=== PATIENT | female | born 1980 | race Caucasian/White ===

== ENCOUNTER → 2018-07-02 12:41 | Outpatient (CLI) | payer OTHER, SELFPAY ==
--- NOTE | 2018-07-02 | LES_PTH ---
PATIENT: IVÁN [facility]ILLS [id number] AGE/SX: 45/F ROOM: RE07/02/[address]: Dr. Juan Pablo Howard MD : 1980 BED: DIS: SPEC #: [id number] RECD: 07/02/18 13:55 STATUS: MAUREEN JUSTINO #: [id number] PATRICE: 07/02/18 00:[address]: Juan Pablo Howard DEPT: SURGICAL PATHOLOGY RECD BY: Julien Moreno ENTERED: 07/02/18 14:02 SP TYPE: Lesion OTHR DR: Dr. Gerard Campbell, DO Tissues: Mouth, NOS Procedures: Surgery Specimen Level IV HEADER OPERATION: Biopsy PRE-OP DIAGNOSIS: Lichen planus L43.9; disturbances of salivary secretion K11.7 TISSUE SUBMITTED: Left cheek, biopsy lesion vestibule of mouth MICROSCOPIC DIAGNOSIS Lesion of left cheek, biopsy: Consistent with benign papilloma. AM:lenny 07/03/18 COMMENT Case has been reviewed in consultation with Dr. Pena who concurs with the above diagnosis. IDC:ARASH MICROSCOPIC DESCRIPTION Slides are reviewed. GROSS DESCRIPTION Received is one container labeled with the patient's name and not further designated. The specimen consists of a piece of barr mucosal tissue measuring 0.3 x 0.3 x 0.2 cm. The specimen is totally submitted in one cassette. / ARASH:lenny 07/02/18 TC:5 CPT: 34689
== END ==
PROVIDERS: Family Provider Student in an Organized Health Care Education/Training Program; PCP Student in an Organized Health Care Education/Training Program; Referring Provider Otolaryngology; Visit Provider Otolaryngology
DX: L43.9 Lichen planus, unspecified (principal); K11.7 Disturbances of salivary secretion
CPT/HCPCS: 88305

== ENCOUNTER 2021-10-04 08:20 | Day surgery (SDC) | payer OTHER, SELFPAY ==
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
[2021-10-04] VITALS (7 sets, daily range): BP systolic 120–128; BP diastolic 78–88; PULSE 80–98; RESP 16–18; TEMP 36.2–36.7; O2SAT 97–100; BMI 26.4
--- NOTE | 2021-10-04 | IMM_PTH ---
PATIENT: IVÁN BILLS [place] [facility] [place][id number] AGE/SX: 41/F ROOM: RE10/04/[address]: Dr. Martha Edmonds MD : 1980 BED: DIS: 10/04/2021 SPEC #: [id number] RECD: 10/07/21 12:13 STATUS: MAUREEN REQ #: [id number] PATRICE: 10/04/21 00:[address]: Martha Edmonds DEPT: IMMUNOHISTOCHEMISTRY RECD BY: Denae Messer ENTERED: 10/07/21 12:15 SP TYPE: IMMUNO OTHR DR: Dr. Gerard Campbell DO Tissues: A - Axillary lymph node, NOS B - Right breast, NOS Procedures: CK8 (initial) CALPONIN-1 (add) CK7 (add) E-CAD (add) Pankeratin (initial) Pankeratin (add) P40 (add) PHYSICIAN & INSTITUTION [place] [id number] SPECIMEN INFORMATION: Tissue Source: A ? Right breast sentinel lymph nodes, B ? Right breast lumpectomy Clinical Info: Right breast cancer Specimen Number: [id number] A1-A4, B12 CPT code: 30576 x2, 70056 x10 METHODOLOGY: Deparaffinized sections of prefer/formalin-fixed tissue or PAP/DQ stained slides are incubated with monoclonal/polyclonal antibodies/oligonucleotide probes. Localization is made via biotin free immunoperoxidase method. Appropriate controls are performed and reacted as expected. Results on target cell population are indicated in the following table: RESULTS: ANTIBODY / CLONE RESULT Block A1 AE1-3 (AE1/AE3/PCK26) negative CK7 (OV-TL12/30) negative Block A2 AE1-3 (AE1/AE3/PCK26) negative CK7 (OV-TL12/30) negative Block A3 AE1-3 (AE1/AE3/PCK26) negative CK7 (OV-TL12/30) negative Block A4 AE1-3 (AE1/AE3/PCK26) negative CK7 (OV-TL12/30) negative Block B12 CK8 ([id number]) positive Calponin-1 (XK968M) negative E-Cad (ECH-6) positive P40 (BC28) negative These tests were developed and their performance characteristics determined by [facility]. They may not have been cleared or approved by the U.S. Food and Drug Administration. The FDA has determined that such clearance or approval is not necessary. The above immunohistochemical/dualISH markers are ordered and reviewed by the Pathologist. INTERPRETATION: A. Right breast sentinel lymph nodes, biopsy: Five out of five lymph nodes, negative for metastatic carcinoma. B. Right breast mass, lumpectomy with needle localization: Invasive ductal carcinoma (smaller focus). SJ:lenny 10/10/2021
--- NOTE | 2021-10-04 | AXNB_PTH ---
PATIENT: IVÁN BILLS LOC: [facility] [place] U#:[id number] AGE/SX: 41/F ROOM: RE10/04/[address]: Dr. Martha Edmonds MD : 1980 BED: DIS: 10/04/2021 SPEC #: [id number] RECD: 10/04/21 12:38 STATUS: MAUREEN REQ #: [id number] PATRICE: 10/04/21 00:[address]: Martha Edmonds DEPT: SURGICAL PATHOLOGY RECD BY: Denae Messer ENTERED: 10/04/21 13:22 SP TYPE: AX NODE BX OTHR DR: Dr. Gerard Campbell DO Tissues: Axillary lymph node, NOS Procedures: Frozen Section (charge) Frozen Section Add'l ([facility]) Surgery Specimen Level V HEADER OPERATION: Right breast lumpectomy, SN biopsy, frozen section PRE-OP DIAGNOSIS: Right breast cancer TISSUE SUBMITTED: A ? Right axilla lymph node tissue, B ? Right breast mass FROZEN SECTION DIAGNOSIS A. Right axillary sentinel lymph nodes, biopsy: Five out of five lymph nodes negative for carcinoma. AM:lenny 10/04/2021 Case has been reviewed in consultation with Dr. Pena who concurs with the above diagnosis. IDC:SJ MICROSCOPIC DIAGNOSIS A. Right axillary sentinel lymph nodes, biopsy: Five out of five lymph nodes, negative for metastatic carcinoma. See comment. B. Right breast mass, lumpectomy with needle localization: Invasive ductal carcinoma. See cancer summary in the comment section. SJ:lenny 10/07/2021 COMMENT A. The lymph nodes are negative for metastatic carcinoma on multiple H & E levels and immunohisto-chemical stains for cytokeratins ([id number]). B. BREAST CANCER SUMMARY Procedure ? excision, lumpectomy with needle localization Specimen laterality - right Invasive tumor: Tumor site ? upper outer quadrant per EMR Tumor size ? 1.2 x 1 x 1 cm Histologic type ? invasive ductal carcinoma, no special type Histologic grade (Michelle grade), larger focus: Glandular/tubular differentiation score - 3 Nuclear pleomorphism score - 2 Mitotic count score - 1 Overall grade - grade 2 (score of 6) Histologic grade (Michelle grade), smaller focus: Glandular/tubular differentiation score - 1 Nuclear pleomorphism score - 1 Mitotic count score - 1 Overall grade - grade 1 (score of 3) Tumor focality ? two foci of invasive carcinoma. Size of individual foci ? larger focus 1.2 x 1 x 1 cm, smaller focus 0.5 x 0.4 cm (measured microscopically) Ductal carcinoma in situ - present Negative for extensive intraductal component (EIC). Size (extent) of DCIS ? DCIS comprise <5% of total tumor volume. Number of blocks with DCIS - 2 Number of blocks examined - 16 Architectural pattern ? cribriform and solid Nuclear grade - grade 2 (intermediate) Necrosis ? not identified Lobular carcinoma in situ - not identified Tumor extension: Skin ? not present Nipple ? not applicable Skeletal muscle ? not present Margins: Invasive and DCIS margin are 0.5 cm away from the closest posterior margin. Regional lymph nodes: Total number of lymph nodes examined - 5 Number of sentinel lymph nodes examined - 5 Number of lymph nodes with macrometastases, micrometastases or isolated tumor cells - 0 Treatment effect - no known presurgical therapy. Lymphvascular invasion ? not identified Dermal lymphvascular invasion ? not applicable Additional Pathologic Findings ? focal fibrocystic changes Ancillary Studies: Previously performed on same tumor at [facility] ([id number]) ER: positive, 99%, strong staining VT: positive, 99%, strong staining [id number]: negative, 1+ Microcalcifications ? not identified Clinical History - Please make reference to previous specimen from [facility] ([id number]), right breast, biopsy with diagnosis of ?invasive ductal carcinoma, provisional Michelle grade 2, measures at least 8?mm in greatest length.? PATHOLOGIC STAGE: pT1c pN0(sn) pMx The above summary is in compliance with [employer] [place] [employer] (CAP) Cancer Protocols Checklist and [place] [employer] Joint Committee on Cancer (AJCC), Staging Manual, 8th Ed. B. Immunohistochemistry ([id number]) supports the diagnosis of smaller focus of adenocarcinoma. This case has been reviewed in consultation with Dr. Gore who concurs with the above diagnosis. MICROSCOPIC DESCRIPTION Slides are reviewed. GROSS DESCRIPTION A - Received fresh for frozen section consultation labeled with the patient's name is a specimen designated right axilla lymph nodes. The specimen consists of two irregular fragments of barr-yellow fibrofatty tissue. The smaller fragment measures 3 x 2.5 x 1.3 cm and the larger fragment measures 7 x 2 x 0.5 cm. Dissection of fragments reveal five nodules resembling lymph nodes. These nodules range in size from 0.7 to 2 cm. The nodules are submitted in their entirety in four cassettes as follows: 1 - two nodules, 2 - one nodule, 3 - one nodules, 4 - one nodule, bisected. / AM:lenny 10/05/2021 B - Received fresh for intraoperative consultation labeled with the patient's name is a specimen designated right breast mass. The specimen consists of a piece of fibroadipose tissue measuring 7 x 6 x 4 cm. A metallic needle is present outside the specimen. The specimen is oriented as follows: two short suture - medial, one short suture - superior, one long suture - lateral, two long sutures - posterior (white). The specimen is inked as follows: anterior - yellow, posterior - black, superior - blue, inferior - green, medial - red and lateral - orange. Serial sections reveal a barr, indurated tumor mass measuring 1.2 x 1 x 1 cm. This mass is 0.5 cm away from the closest posterior margin. This information is conveyed to the surgeon intraoperative. Sections of the rest of the specimen reveal barr-yellow adipose cut surfaces mixed with barr-white fibrous areas. Track Repair Worker sections are submitted in 16 cassettes as follows: 1 & 2 - perpendicular margins, 3-8 - tumor, entirely submitted, 9-16 - Track Repair Worker sections adjacent and away from the tumor. / SJ:lenny 10/05/2021 TC:0 CPT: 02124 x2, 76833, 87153, 25447 x3
[2021-10-04] MEDS: Lactated Ringers 1,000 ML 15 ML IV (08:35)
[2021-10-04 08:54] LABS: Internal QC Validated? YES +Cl - CLEAR BKGD
[2021-10-04 08:59] LABS: Pregnancy, Urine Negative Negative
--- NOTE | 2021-10-04 09:00 | NM_ITS ---
PROCEDURE: NUCLEAR MEDICINE Injection Freedom Node - RIGHT breast(s). REASON FOR EXAM: Female, 41 years old. Right breast cancer. TECHNIQUE: Freedom node localization using radionuclide methods of the RIGHT breast(s) was performed following subcutaneous administration of 1.1 mCi of of sulfur colloid Tc-99m. FINDINGS: 1.1 mCi of technetium labeled sulfur colloid was injected subcutaneously in 4 equal aliquots in the right periareolar region. NM/Lymph Node Injection Only IMPRESSION: 1.1 mCi of technetium labeled sulfur colloid was injected subcutaneously in 4 equal aliquots in the right perihilar region for sentinel node imaging. Electronically Signed: Neto Loaiza MD at 9:45 EST ,
--- NOTE | 2021-10-04 09:19 | BI_ITS ---
SURGICAL BREAST SPECIMEN RADIOGRAPH CLINICAL: Document presence of tissue clip marker in biopsy specimen. FINDINGS: Specimen shows presence of tissue clip marker. Electronically Signed: Neto Loaiza MD at 13:54 EST , BI/Breast Biopsy Specimen
[2021-10-04] MEDS: Cefazolin 2 GM in 0.9% Normal Saline 100 ML IV (11:45)
[2021-10-04] MEDS: Lidocaine 1% /Epi 1:100 (50ml) 50 ML VIAL INFILT (12:00)
[2021-10-04] MEDS: Isosulfan Blue 1% 5 ML Vial (12:00)
--- NOTE | 2021-10-04 13:35 | OP.PCM_ITS ---
Report of Operation Date of Procedure: 10/04/21 Pre-Operative Diagnosis: right breast cancer Post-Operative Diagnosis: same Surgery/Procedure Performed:: right breast lumpectomy via wire localization, right axillary sentinel lymph node biopsy via blue and radioactive dye Description of Surgical Findings:: 5 lymph nodes negative, closest lumpectomy margin - 5mm Surgeon: Martha Edmonds technology intern: Sagar Bunch Type of Anesthesia: General Anesthesiologist: Carina Howard Special Medications: 3 ml of lymphozurin injected into Sappey's plexus of right breast Specimen's removed: right axillary lymph node tissue, right breast lumpectomy Drains: none Estimated Blood Loss (mL): 25 ml Fluids Replaced: 1500 ml RL Description of Procedure: After informed consent was given, the patient was brought into the Breast Stereotactic Radiology suite. Appropriate time out protocol was followed. The patient was then placed in the prone position on the Yan stereotactic table. The patient?s right breast was placed in the opening at the head of the table. A system analyst compression mammogram was then obtained. The marker clip that was previously placed was identified. Stereo pictures of the lesion were then taken for XYZ coordinates. The Kopans needle was then positioned where it would be entering into the patient?s breast. The skin at this site was then cleansed with a surgical skin preparation. The skin and subcutaneous tissues at this site were then infiltrated with 1% xylocaine. The Kopans needle was then positioned into the patient?s breast at the proper co ordinates of depth. A system analyst film was obtained which revealed the wire in proper position. The patient was then placed in the supine position and the wire was taped into place. A unilateral mammogram in the CC and MLO view were then taken for use in the OR. The patient tolerated this portion of the procedure well and was brought to the AC awaiting surgery in the OR. The patient was then brought to the Operating Room. Appropriate time out protocol was followed. The patient was then placed on the operating table in the supine position. A wire had already been placed in the stereotactic biopsy room in the radiology department as described above. The right breast with the wire in placed was then prepped with a sterile surgical skin preparation and sterile surgical drapes were placed. The patient had radioactive isotope injected earlier this day by the radiologist for radioactive tracer tracking. After the patient was placed under general anesthesia by the anesthesia provider, the periareolar subcutaneous tissues of the right breast were infiltrated with lymhazurin blue dye - diluted to a 50:50 mixture with saline - total of 3 ml used, using a 25G needle. Gentle massage was then done for a few minutes. The right breast with the wire in placed and the torso was then prepped with a sterile surgical skin preparation and sterile surgical drapes were placed. The Neoprobe device was brought into the operative field. A skin incision was made in the inferior portion of the hair bearing area of the right axilla. It was carried through to the subcutaneous tissues using electrocautery. Any hemorrhage was controlled with electrocautery. A Weitlaner retractor was used for increased operative exposure. The Neoprobe 10 second count over the tumor bed was 583. The 10 second count over the abdominal area was 4. The 10 second count over the axilla was 33. Blunt dissection was conducted into the soft tissues of the axilla. The blue lymphatic vessels were then followed by the blunt dissection until blue colored lymph nodes were identified. This lymph irvin tissue was from the surrounding tissue by blunt dissection and the vascular pedicles ligated with ligaclips. The Neoprobe 10 second count of the lymph irvin tissue was 165. The lymph irvin tissue was then forwarded to pathology for frozen section. Pathology revealed that five lymph nodes were negative for metastatic disease. Careful examination was done in the axilla, no further palpable masses were noted in the axilla. No further blue colored tissue was noted in the axilla. The 10 second Neoprobe count in the axilla was 21. Hemostasis was carefully controlled by electrocautery. Jessica was applied into the axillary cavity. The deep tissues were approximated with 2-0 vicryl suture. The skin edges were reapproximated with 3-0 vicryl suture in a horizontal mattress fashion and then further closed with running 4-0 monocryl in a subcuticular fashion. Cavilon and steristrips were then placed to reinforce the skin closure and proper sterile dressings were applied. The skin and subcutaneous tissues at the site of the breast lesion with wire implanted was then infiltrated with 1% xylocaine with epinephrine. A transverse curvilinear skin incision was then made at the wire entrance site with a 15 blade scalpel. This was the upper outer quadrant of the right breast. The incision was carried down through to the subcutaneous tissues. Hemostasis was controlled with electrocautery. The wire was then palpated within the breast tissue. The breast tissue surrounding the wire was then carefully palpated out and from the surrounding tissues using electrocautery. The patient was noted to have dense fibrous breast tissue in this area. The breast tissue, once from the breast, was then forwarded to the radiology department, where a specimen mammogram revealed that the marker clip was within the specimen. I examined this film and determined that it was appropriate. The breast tissue was then forwarded to pathology for analysis. The margins of the specimen wre marked with suture. Pathology review revealed that the closest margin was posterior with a measurement of 5 mm. The wound cavity was carefully examined. No further suspicious tissue was palpated or visualized. Hemostasis was carefully controlled with electrocautery. The subdermal tissues were then approximated with vicryl suture. The incision was then reapproximated close using running monocryl suture. Cavilon and steristrips were then placed to reinforce the skin closure. Sponge, needle, and instrument count were verified and correct at the time of skin closure. A sterile dressing was then applied. The patient was then brought to the Recovery Room in stable condition. Complications none noted Admit VTE Documentation VTE Present on Admission: Yes VTE Mechan Device Prophylaxis: SCD's
--- NOTE | 2021-10-04 13:57 | EX.PCM.DISCH ---
Discharge Instructions Follow Up Care Test Results: Test results from this visit will be discussed in further detail at your follow-up appointment, if applicable. Discharge Plan Admission Primary Reason for Your Visit: right breast cancer Attending Provider: Martha Edmonds Primary Care Provider: Gerard Campbell Instructions Additional Instructions / Restrictions: Recommended pain control regimen - May take 600 mg ibuprofen (Motrin) and then in 3-4 hours, may take 650 mg acetaminophen (Tylenol), then in 3-4 hours may take 600 mg ibuprofen, then in 3-4 hours may take 650 mg acetaminophen and so on for 2-3 days May take narcotic pain medication for pain that is not controlled by above and at night for comfort through the night Leave dressings in place May shower, do not scrub in the areas of the dressings as they may unravel. Do not soak - no tub baths/swimming Ice applied to areas of discomfort may help No lifting/pushing/pulling greater than 10 pounds with right arm for at least two weeks. For breast surgeries - wear supportive bra during the day to prevent the weight of your breast from pulling on the incisional site. Please call my office for an appointment to see me in 1 week. Office number is If any questions, please call my office at and ask the adhesive bandage machine operator for the general surgery nurses desk Discharge Orders/Prescriptions Prescriptions: New hydrocodone-acetaminophen 5-325 mg tablet 1 tab PO Q8H 5 Days Qty: 15 RF: 0 No Action trazodone 50 mg tablet 50 mg PO QHS PRN PRN (Reason: Sleep) RF: 0 pantoprazole 20 mg tablet,delayed release (DR/EC) 40 mg PO DAILY RF: 0 lorazepam 0.5 mg tablet 0.5 mg PO DAILY PRN PRN (Reason: Anxiety) RF: 0 lisinopril 10 mg tablet 10 mg PO DAILY RF: 0 hydroxychloroquine [Plaquenil] 200 mg Tablet 200 mg PO DAILY RF: 0 dextroamphetamine-amphetamine [Adderall XR] 30 mg capsule,extended release 24hr 30 mg PO .MORNING RF: 0 dextroamphetamine-amphetamine [Adderall XR] 30 mg capsule,extended release 24hr 10 mg PO .AFTERNOON RF: 0 buspirone 15 mg tablet 15 mg PO BID RF: 0 Referrals / Follow Up: Campbell,Gerard, DO [Primary Care Provider] - Disposition Disposition (needs filled in before D/C Order can be placed): Home, Self Care
[2021-10-04] MEDS: HYDROcodone Bitartrate/Apap 5/325 Tablet PO (15:16)
== END 2021-10-04 23:59 | disposition home or self-care (01) ==
LOC: SDC 08:21 → AC 08:22
PROVIDERS: Anesthesiology; PCP Student in an Organized Health Care Education/Training Program; Referring Provider Surgery; Visit Provider Surgery
PROC: (CPT 19301; principal; 2021-10-04 11:15)
DX: C50.411 Malignant neoplasm of upper-outer quadrant of right female breast (principal); M32.9 Systemic lupus erythematosus, unspecified; Z17.0 Estrogen receptor positive status [ER+]; M19.90 Unspecified osteoarthritis, unspecified site; F41.9 Anxiety disorder, unspecified; K21.9 Gastro-esophageal reflux disease without esophagitis; Z79.899 Other long term (current) drug therapy; Z87.891 Personal history of nicotine dependence; Z20.822 Contact with and (suspected) exposure to COVID-19
CPT/HCPCS: 19301; 38525; 00400; 19281; 38792; 76098; 81025; 87426; 88305; 88307; 88331; 88332; 88341; 88342; A9541; C9803; J7050; J7120; J2405; Q9968